=== PATIENT | female | born 1970 | race Caucasian/White ===

== ENCOUNTER 2023-03-03 13:10 | Emergency (ER) | payer OTHER, MEDICAID, SELFPAY ==
[2023-03-03 13:17] VITALS: PULSE 92; RESP 16; TEMP 36.1; O2SAT 99; BMI 29.2
--- NOTE | 2023-03-03 14:04 | PC.NURSE ---
Patient yelling at staff you stuck me in a fucking dirty corner and no one has spoke to me Multiple attempts to explain to patient plan. Yunishagufta continues to yell at this RN. Offered to start an IV on patient to get blood work per Dr Garcia's orders. Patient state I don't want an IV I want an US Asked patient if I could explain plan of care and patient won't listen. Informed patient I would send the provider over to talk to her.
--- NOTE | 2023-03-03 14:20 | PC.NURSE ---
Additional attempt to speak with patient. Patient continues to swear and raise her voice you only have one fucking doctor on this is a hospital that is ridiculous you are worse than [facility]. You just stuck me in a dirty corner and people just keep walking by not acknowledging me Apologized to patient unsatisfied. Tried to validate patients concerns and explain triage process.
--- NOTE | 2023-03-03 14:55 | DI.US.S_ITS ---
PROCEDURE: US PERIPH VENOUS LOW EXTREM LT INDICATIONS: INCREASING PAIN, EDEMA TECHNIQUE: Real-time imaging, as well as color and pulse Doppler interrogation, were performed of the lower extremity deep veins from the inguinal ligament to the popliteal fossa. COMPARISON: None. FINDINGS: Partially occlusive deep venous thrombosis can be seen involving the popliteal vein, with occlusive thrombus within the posterior tibial vein. No deep venous thrombosis can be seen proximal to the level of the knee. IMPRESSION: Partially occlusive popliteal vein thrombosis with occlusive posterior tibial vein thrombosis. No more proximal deep venous thrombosis can be seen. Dictated by: Tomy Bryan M.D. on 03/03/2023 at 15:42 Approved by: Tomy Bryan M.D. on 03/03/2023 at 15:43
--- NOTE | 2023-03-03 15:09 | ED.RECABL ---
HPI - Recheck/Abnormal Lab/Rx <NELI Dodson - Last Filed: 03/03/23 16:49> General Chief Complaint: Recheck/Abnormal Lab/Rx Stated Complaint: Blood clot left leg. Time Seen by Provider: 03/03/23 14:54 Mode of arrival: Wheelchair History of Present Illness HPI narrative: This is a 53-year-old female who presents to the emergency department complaining of left lower extremity edema that has been worsening over last few days. States that she was diagnosed with a lower leg DVT on 02/26/2023 and was started on Eliquis, states that she is currently on 10 mg b.i.d. she has history tibial plateau fracture in November 05, 2022, states that she had surgery on November 15, 2022. She was on subQ DVT prophylaxis for 6 weeks, states that she had swelling and pain and had an ultrasound on Saturday02/26/2023 for occlusive thrombus involving the popliteal vein. She endorses worsening swelling, worsening pain since diagnosis, states that she is out of her oxycodone which she received from her primary care provider postoperatively. She has scheduled follow-up with her PCP next week. Is here for pain control and is concerned about worsening of this DVT. Related Data Previous Rx's Medication Instructions Recorded diclofenac sodium 1 % topical gel 2 g topical QID #100 grams 03/03/23 oxycodone-acetaminophen 5 mg-325 1 tab PO Q8H PRN pain #14 tabs 03/03/23 mg tablet (Percocet) Allergies Allergy/AdvReac Type Severity Reaction Status Date / Time bee venom protein (honey bee) Allergy Anaphylaxis Verified 03/03/23 13:24 Iodinated Contrast Media Allergy Anaphylaxis Verified 03/03/23 13:24 codeine AdvReac Intermediate Verified 03/03/23 15:28 ibuprofen AdvReac Intermediate Verified 03/03/23 15:28 Review of Systems <NELI Dodson - Last Filed: 03/03/23 16:49> Review of Systems ROS Unobtainable: All systems reviewed & are unremarkable except as noted in HPI and below Patient History <NELI Dodson - Last Filed: 03/03/23 16:49> Social History Smoking Status: Current every day smoker Smoking Status: Current every day smoker alcohol intake frequency: 0-2 drinks per day Substance Use Type: does not use Exam <NELI Dodson - Last Filed: 03/03/23 16:49> Narrative Exam Narrative: Reviewed vitals signs and nursing notes. General: Pleasant, sitting upright, in no acute distress, well groomed, afebrile HEENT: symmetrical facial expressions, moist mucous membranes, neck is supple CV: regular rate and rhythm, warm extremities Respiratory: normal work of breathing, without tachypnea or hypoxia. GI: abdomen soft, nondistended, without CVA tenderness bilaterally. MSK: moves all extremities, no weakness, normal tone, ambulatory without deficit Skin: without rash or wound, there is edema to the left lower leg,, it is discolored, atraumatic, delayed cap refill to 3-4 seconds to the toes. No erythema, bilateral feet are cool to touch, PT and DP pulse to the left foot are palpable Neuro: clear speech and normal cognition, A&O x3, GCS 15, no focal motor or sensation deficits Initial Vital Signs Initial Vital Signs: Vital Signs Temperature 97 F L 03/03/23 13:17 Pulse Rate 92 H 03/03/23 13:17 Respiratory Rate 16 03/03/23 13:17 Pulse Oximetry 99 03/03/23 13:17 Oxygen Delivery Method Room Air 03/03/23 13:17 <Gurinder Garcia DO - Last Filed: 03/03/23 16:47> Initial Vital Signs Initial Vital Signs: Vital Signs Temperature 97 F L 03/03/23 13:17 Pulse Rate 92 H 03/03/23 13:17 Respiratory Rate 16 03/03/23 13:17 Pulse Oximetry 99 03/03/23 13:17 Oxygen Delivery Method Room Air 03/03/23 13:17 Course <NELI Dodson - Last Filed: 03/03/23 16:49> Orders Ordered: ED Orders 03/03/23 14:55 US periph venous low extrem lt Stat Discontinued Medications Hydrocodone Bitart/Acetaminophen (Hydrocodone/Acet 5/325 Tablet) 1 tab PO NOW ONE Stop: 03/03/23 14:56 Last Admin: 03/03/23 15:26 Dose: Not Given Documented By: SB Oxycodone/Acetaminophen (Oxycodone/Acetaminophen 5/325 Tablet) 2 tab PO NOW ONE Stop: 03/03/23 15:05 Last Admin: 03/03/23 15:32 Dose: 2 tab Documented By: MARISSA Vital Signs Vital signs: Vital Signs - 8 hr 03/03/23 13:17 03/03/23 16:22 03/03/23 16:24 Temperature 97 F L Pulse Rate 92 H 98 H Respiratory Rate 16 Blood Pressure 139/91 H Pulse Oximetry 99 96 Oxygen Delivery Method Room Air 03/03/23 16:24 03/03/23 16:30 03/03/23 16:30 Temperature Pulse Rate 96 H 94 H Respiratory Rate Blood Pressure 132/89 Pulse Oximetry 97 98 Oxygen Delivery Method <Gurinder Garcia DO - Last Filed: 03/03/23 16:47> Orders Ordered: ED Orders 03/03/23 14:55 US periph venous low extrem lt Stat Discontinued Medications Hydrocodone Bitart/Acetaminophen (Hydrocodone/Acet 5/325 Tablet) 1 tab PO NOW ONE Stop: 03/03/23 14:56 Last Admin: 03/03/23 15:26 Dose: Not Given Documented By: MARISSA Oxycodone/Acetaminophen (Oxycodone/Acetaminophen 5/325 Tablet) 2 tab PO NOW ONE Stop: 03/03/23 15:05 Last Admin: 03/03/23 15:32 Dose: 2 tab Documented By: MARISSA Vital Signs Vital signs: Vital Signs - 8 hr 03/03/23 13:17 03/03/23 16:22 03/03/23 16:24 Temperature 97 F L Pulse Rate 92 H 98 H Respiratory Rate 16 Blood Pressure 139/91 H Pulse Oximetry 99 96 Oxygen Delivery Method Room Air 03/03/23 16:24 03/03/23 16:30 03/03/23 16:30 Temperature Pulse Rate 96 H 94 H Respiratory Rate Blood Pressure 132/89 Pulse Oximetry 97 98 Oxygen Delivery Method MDM - Recheck/Abnormal Lab/Rx <NELI Dodson - Last Filed: 03/03/23 16:49> Imaging Data US - DVT: Radiologist's Impression: PROCEDURE:? US PERIPH VENOUS LOW EXTREM LT ? INDICATIONS:? INCREASING PAIN, EDEMA ? TECHNIQUE:? Real-time imaging, as well as color and pulse Doppler interrogation, were performed of the lower extremity deep veins from the inguinal ligament to the popliteal fossa.? ? COMPARISON:? None. ? FINDINGS:? Partially occlusive deep venous thrombosis can be seen involving the popliteal vein, with occlusive thrombus within the posterior tibial vein. ? No deep venous thrombosis can be seen proximal to the level of the knee. ? ? ? IMPRESSION:? Partially occlusive popliteal vein thrombosis with occlusive posterior tibial vein thrombosis. ? No more proximal deep venous thrombosis can be seen. ? ? Dictated by: Tomy Bryan M.D. on 03/03/2023 at 15:42 ? ? Approved by: Tomy Bryan M.D. on 03/03/2023 at 15:43 ? MDM Narrative Medical decision making narrative: Chief Complaint: Swelling and pain to left lower leg Multiple etiologies for patient's symptoms considered including, but not limited to: Worsening edema secondary to known DVT, further extension of known DVT, I have independently reviewed the patient's vital signs and nursing notes as well as prior records if available. Pertinent records include: Pertinent Imaging reviewed: Patient had imaging faxed over from [facility] from her ultrasound duplex left lower leg on 02/26/2023 which shows an acute DVT of the left popliteal vein, it was occlusive, no longer is today on ultrasound. Today her ultrasound shows occlusive DVT to the posterior tibial vein and a partially occlusive thrombus to the left popliteal vein. She no longer has a proximal DVT in the popliteal vein. She does not have any shortness of breath, difficulty breathing, tachypnea hypoxia or chest pain complaint. She is here for worsening pain and swelling to the left lower extremity. She is encouraged to start using compression stockings, elevate, was provided pain control and 14 tabs of Percocet and so she can follow up with her PCP. Course of care: Patient is currently anticoagulated on 10 mg of Eliquis b.i.d. as she was recently started this. There is no further treatment of this DVT at this time, she is neurovascularly intact, pain management is the plan of care and patient understands to follow-up with her PCP at her scheduled appointment. Social considerations that may affect disposition: none Questions are addressed and there is agreement with the plan and for follow-up. Patient is appropriate for outpatient management. Discharge Plan Departure Patient Disposition: Home Clinical Impression: Encounter for medication refill, History of deep vein thrombosis (DVT) of lower extremity, Anticoagulated Instructions: Deep Vein Thrombosis Activity Restrictions/Additional Instructions: *You have been diagnosed with swelling and edema related to the known DVT in your leg. Popliteal 1 is not occlusive but there is 1 in this vein as well as the lower leg. Treatment is continuing anticoagulation, do not miss a dose, and elevation as much as possible. The swelling in your lower leg which gets worse every time the leg dependent. Please use compression stockings, elevate this as much as possible, think about how it is swelling every time it is dependent. I hope you start feeling better, sorry that this is painful, I have given you the maximum amount of pain pills to discharge from emergency department with until you follow-up with your primary care provider. Please use topical diclofenac gel as another method of pain management, do not take ibuprofen or other NSAIDs. I hope you feel better soon. *What to do: *Please continue to take your regular medications as directed. x New medication prescriptions sent to your pharmacy: [ [facility] ] [ ] New medication written as a paper prescription [ ] No new medications given *Please call and schedule follow up with your primary care provider in 2-3 days, at least for an update. Let them know you were seen in the Emergency Department for the above problem. We will electronically transmit a record of today's note if your PCP or specialist is in our system. *If you do not have a primary care provider please contact [phone] to establish care with one of the [facility] primary care providers. *Return to the Emergency Department for worsening symptoms, inability to keep liquids down, fever greater than 101F, chills, or other concerning symptom. Prescriptions: New oxycodone-acetaminophen [Percocet] 5-325 mg tablet 1 tab PO Q8H PRN (Reason: pain) Qty: 14 0RF diclofenac sodium 1 % gel 2 g topical QID Qty: 100 0RF Rx Instructions: apply to area of pain up to 4 times a day Referrals: Lina Ramirez MD [Non-Staff] - Stand Alone Forms: Patient Portal/API <Gurinder Garcia DO - Last Filed: 03/03/23 16:47> Cosign ED Attending Cosnikkyature Attestation: Dr Garcia Co-Sign Statement: I was available for consultation during this patient's emergency department visit. This chart is signed by myself for administrative purposes only. I did not have direct contact with this patient during this visit. They were seen independently by the APC.
[2023-03-03] MEDS: OXYCODONE/ACETAMINOPHEN 5/325 TABLET 2 TAB PO (15:32)
[2023-03-03 16:22] VITALS: PULSE 98; O2SAT 96
[2023-03-03 16:24] VITALS: BP 139/91; PULSE 96; O2SAT 97
[2023-03-03 16:30] VITALS: BP 132/89; PULSE 94; O2SAT 98
[2023-03-03 16:47] VITALS: O2SAT 98
== END 2023-03-03 16:52 | disposition home or self-care (01) ==
PROVIDERS: Emergency Provider Nurse Practitioner Critical Care Medicine
DX: I82.402 Acute embolism and thrombosis of unspecified deep veins of left lower extremity (principal); Z79.01 Long term (current) use of anticoagulants
CPT/HCPCS: 93971; 99283